=== PATIENT | male | born 2000 ===

== ENCOUNTER 2021-06-13 17:29 | Emergency (ER) | payer OTHER ==
[~2021-06-13] VITALS: Ht 167.6 cm; Wt 92.5 kg
[2021-06-13] MEDS ORDERED: IBU800 MG PO (21:29)
== END 2021-06-13 21:31 | disposition home or self-care (01) ==
LOC: ER 17:29
DX: N50.3 Cyst of epididymis (principal); N50.811 Right testicular pain

== ENCOUNTER → 2021-09-20 | Outpatient (CLI) | payer OTHER ==
[~2021-09-20] MED LIST: IBU800 MG PO
== END | disposition home or self-care (01) ==
LOC: SONOGRAMA 08:16
PROVIDERS: ATTEND General Practice
DX: K76.0 Fatty (change of) liver, not elsewhere classified (principal); K59.09 Other constipation; R10.84 Generalized abdominal pain; Z13.89 Encounter for screening for other disorder; Z13.220 Encounter for screening for lipoid disorders; Z11.3 Encounter for screening for infections with a predominantly sexual mode of transmission

== ENCOUNTER 2021-12-23 12:24 | Emergency (ER) | payer OTHER ==
[~2021-12-23] VITALS: Ht 167.6 cm; Wt 90.7 kg
[2021-12-23] MEDS ORDERED: NORFLEX100MG PO (13:49)
== END 2021-12-23 14:01 | disposition home or self-care (01) ==
LOC: ER 12:24
DX: M54.2 Cervicalgia (principal)

== ENCOUNTER 2022-03-02 00:46 | Emergency (ER) | payer OTHER ==
[~2022-03-02] VITALS: Ht 167.6 cm; Wt 90.7 kg
[~2022-03-02 00:46] MED LIST changes: +NORFLEX100MG PO
[2022-03-02] MEDS ORDERED: LEVSIN/SL0.125 MG SL (06:08)
[2022-03-02] MEDS ORDERED: PHAZYME180 MG PO (06:08)
== END 2022-03-02 06:15 ==
LOC: ER 00:46
DX: R10.84 Generalized abdominal pain (principal); K59.00 Constipation, unspecified